=== PATIENT | male | born 1945 | race Asian ===

== ENCOUNTER 2023-03-12 16:29 | Inpatient (IN) | payer MEDICAID, OTHER ==
[~2023-03-12] VITALS: Ht 170.2 cm; Wt 53.5 kg
[2023-03-12] MEDS ORDERED: IV NS 0.9% 1,000 ML BAG IV ONE (17:00)
[2023-03-12] MEDS ORDERED: AZITHROMYCIN 500 MG in IV D5W 250 ML IV ONE (17:00)
[2023-03-12] MEDS ORDERED: PIPERACILLIN /TAZOBACTAM 3.375 G in IV D5W 50 ML IV ONE (17:00)
[2023-03-12] MEDS ORDERED: VANCOMYCIN 1 GM in IV D5W 250 ML IV ONE (17:00)
[2023-03-12 17:15] LABS: BASOPHILS % (AUTO) 0.2 % (0.0-2.0); EOSINOPHILS % (AUTO) 0.4 % (0.0-6.0); HEMATOCRIT 50 % (39-51); HEMOGLOBIN 15.9 g/dL (13.5-17.5); LYMPHOCYTES # (AUTO) 1.4 K/uL (0.8-4.8); LYMPHOCYTES % (AUTO) 11.2 % (20.0-44.0); MEAN CORPUSCULAR HGB CONC 32 g/dl (31.0-36.0); MEAN CORPUSCULAR VOLUME 79 fL (80-96); MONOCYTES # (AUTO) 0.8 K/uL (0.1-1.30); MONOCYTES % (AUTO) 6.4 % (2.0-12.0); NEUTROPHILS % (AUTO) 81.8 % (43.0-81.0); PLATELET COUNT (AUTO) 151 K/uL (150-450); RED BLOOD CELL COUNT(AUTO) 6.38 MIL/uL (4.5-6.0); WHITE BLOOD COUNT (AUTO) 12.3 K/uL (4.3-11.0)
[2023-03-12 17:17] LABS: ABG BASE EXCESS 4.7 mmol/L; ABG OXYGEN SATURATION 98.7 % (92.0-98.5); ABG PCO2 46.7 mmHg (35.0-45.0); ABG PH 7.425 (7.350-7.450); ABG PO2 139.7 mmHg (75.0-100.0); COHb 0.6 % (0.5-1.5); MetHb 0.4 % (0.0-1.5); O2Hb 97.7 % (94.0-97.0); SITE, ABG Left Radial; VENT MODE, BG 3 LPM NC
[2023-03-12 17:38] LABS: CALCIUM, SERUM 9.8 mg/dL (8.5-10.1); CARBON DIOXIDE 29 mmol/L (21-32); CHLORIDE 120 mmol/L (98-107); CREATININE 1.4 mg/dL (0.6-1.3); GLUCOSE 135 mg/dL (74-106); POTASSIUM 3.8 mmol/L (3.5-5.1); UREA NITROGEN, BLOOD 41 mg/dL (7-18)
[2023-03-12 17:53] LABS: ALANINE AMINOTRANSFERASE 44 U/L (12-78); ALBUMIN 3.6 g/dL (3.4-5.0); ALKALINE PHOSPHATASE 111 U/L (46-116); ASPARTATE AMINOTRANSFERASE 22 U/L (15-37); BILIRUBIN,DIRECT 0.1 mg/dL (0.0-0.2); BILIRUBIN,TOTAL 0.4 mg/dL (0.2-1.0); TOTAL PROTEIN, SERUM 9.5 g/dL (6.4-8.2)
[2023-03-12 17:55] LABS: SODIUM SERUM 166 mmol/L (136-145)
[2023-03-12] MEDS ORDERED: IV NS 0.9% 250 ML IV ONE (18:03)
[2023-03-12] MEDS ORDERED: CT SWABBABLE VALVE TRANS SET 1 EA INFUS.SET MC ONE (18:03)
[2023-03-12] MEDS ORDERED: IOHEXOL-350 100 ML VIAL IV ONE (18:03)
[2023-03-12 18:10] LABS: BILIRUBIN,URINE 1+ (NEGATIVE); COLOR,URINE YELLOW (YELLOW); LEUKOCYTE ESTERASE ,URINE NEGATIVE (NEGATIVE); NITRITE, URINE NEGATIVE (NEGATIVE); PROTEIN,URINE TRACE mg/dl (NEGATIVE); UGLUCOSE NEGATIVE (NEGATIVE); UROBILINOGEN,URINE 0.2 EU/dL (0.2)
[2023-03-12 18:28] LABS: BACTERIA,URINE Few /HPF (None Seen); MUCUS,URINE Few /LPF (None Seen); RBC,URINE 0-2 /HPF (0-2); SQUAMOUS EPITHELIAL CELL,UR None Seen /HPF (None Seen); WBC,URINE 0-2 /HPF (0-3)
[2023-03-12] MEDS ORDERED: CEFEPIME 1 GM in IV D5W 50 ML IV SCH (21:00)
[2023-03-12] MEDS ORDERED: Z GUARD REMEDY 4 OZ OINT TP PRN (21:00)
[2023-03-12] MEDS ORDERED: ONDANSETRON HCL/PF 4 MG/2 ML VIAL IVP PRN (21:00)
[2023-03-12] MEDS ORDERED: MAG HYDROX/AL HYDROX/SIMETH 30 ML UDC PO PRN (21:00)
[2023-03-12] MEDS ORDERED: ACETAMINOPHEN 650 MG/SUPP.RECT RC PRN (21:00)
[2023-03-12] MEDS ORDERED: MORPHINE SULFATE INJ 2 MG/ML DISP.SYRIN IV PRN (21:00)
[2023-03-12] MEDS ORDERED: ENOXAPARIN SODIUM 30 MG/0.3 ML DISP.SYRIN SQ SCH (21:30)
[2023-03-12] MEDS ORDERED: CEFEPIME 1 GM VIAL ONE (22:25)
[2023-03-12] MEDS: IV D5W 1,000 ML IV PRN (22:31)
[2023-03-13] VITALS: BP 159/89; TEMP 101.3; O2SAT 92
[2023-03-13 04:00] VITALS: BP 101/78; TEMP 97.7; O2SAT 91
[2023-03-13 06:38] LABS: BASOPHILS % (AUTO) 0.5 % (0.0-2.0); EOSINOPHILS % (AUTO) 0.7 % (0.0-6.0); HEMATOCRIT 40 % (39-51); HEMOGLOBIN 12.6 g/dL (13.5-17.5); LYMPHOCYTES # (AUTO) 1.2 K/uL (0.8-4.8); LYMPHOCYTES % (AUTO) 12.3 % (20.0-44.0); MEAN CORPUSCULAR HGB CONC 32 g/dl (31.0-36.0); MEAN CORPUSCULAR VOLUME 79 fL (80-96); MONOCYTES # (AUTO) 1.2 K/uL (0.1-1.30); NEUTROPHILS # (AUTO) 7.4 K/uL (1.8-8.9); NEUTROPHILS % (AUTO) 74.5 % (43.0-81.0); PLATELET COUNT (AUTO) 141 K/uL (150-450); WHITE BLOOD COUNT (AUTO) 9.9 K/uL (4.3-11.0)
[2023-03-13 07:20] LABS: THYROID STIMULATING HORMONE 1.326 uIU/mL (0.358-3.74)
[2023-03-13 07:23] LABS: CALCIUM, SERUM 9.1 mg/dL (8.5-10.1); CREATININE 1.2 mg/dL (0.6-1.3); MAGNESIUM 2.6 mg/dL (1.8-2.4); PHOSPHORUS 3.2 mg/dL (2.5-4.9); POTASSIUM 3.4 mmol/L (3.5-5.1)
[2023-03-13 08:30] VITALS: BP 104/74; TEMP 99.3; O2SAT 96
[2023-03-13] MEDS: VANCOMYCIN 500 MG in IV D5W 100ml IV SCH ×2 (08:46→20:13)
[2023-03-13] MEDS: PANTOPRAZOLE 40 MG VIAL IV SCH (08:46)
[2023-03-13] MEDS ORDERED: POTASSIUM CHLORIDE 10 MEQ/50 ML PREMIXED IVPB FOR PERIPHERAL LINE IV ONE (09:00)
[2023-03-13] MEDS: CEFEPIME 2 GM in IV D5W 100 ML IV SCH (09:51)
[2023-03-13 13:00] VITALS: BP 107/73; TEMP 99; O2SAT 96
[2023-03-13] MEDS ORDERED: ATOR40TA PO (13:53)
[2023-03-13] MEDS ORDERED: ACET325C7 PO (13:53)
[2023-03-13] MEDS ORDERED: CLON1TAB12 PO (13:53)
[2023-03-13] MEDS ORDERED: MELA3TAB41 PO (13:53)
[2023-03-13] MEDS ORDERED: SODI100037 PO (13:53)
[2023-03-13] MEDS ORDERED: PALI117D IM (13:53)
[2023-03-13] MEDS ORDERED: TRAZ-257 PO (13:53)
[2023-03-13] MEDS ORDERED: ASPI-1169 PO (13:53)
[2023-03-13] MEDS ORDERED: LORA-259 PO (13:53)
[2023-03-13] MEDS ORDERED: POLY17PO4 PO (13:53)
[2023-03-13] MEDS ORDERED: GABA300C PO (13:53)
[2023-03-13] MEDS ORDERED: QUET100T PO (13:53)
[2023-03-13] MEDS ORDERED: MAGN400T52 PO (13:53)
[2023-03-13] MEDS ORDERED: FERR325T23 PO (13:53)
[2023-03-13] MEDS ORDERED: DIVA-78 PO (13:53)
[2023-03-13] MEDS: LORAZEPAM INJ 2 MG/ML VIAL IV PRN (14:51)
[2023-03-13] MEDS: IV D5W 1,000 ML IV PRN (15:01)
[2023-03-13 16:00] VITALS: BP 122/72; TEMP 99.9; O2SAT 96
[2023-03-13] MEDS ORDERED: OLANZAPINE 10 MG VIAL IM ONE (18:00)
[2023-03-13 20:00] VITALS: BP 131/89; TEMP 98.4; O2SAT 96
[2023-03-13] MEDS: ENOXAPARIN SODIUM 40 MG/0.4 ML DISP.SYRIN SQ SCH (21:59)
[2023-03-14] VITALS: BP 145/82; TEMP 98.2; O2SAT 95
[2023-03-14] MEDS: CEFEPIME 2 GM in IV D5W 100 ML IV SCH ×3 (00:19→21:43)
[2023-03-14] MEDS: LORAZEPAM INJ 2 MG/ML VIAL IV PRN (01:34)
[2023-03-14 04:00] VITALS: BP 134/85; TEMP 97.9; O2SAT 96
[2023-03-14 06:50] LABS: BASOPHILS % (AUTO) 0.4 % (0.0-2.0); EOSINOPHILS % (AUTO) 1.4 % (0.0-6.0); HEMATOCRIT 38 % (39-51); HEMOGLOBIN 12.4 g/dL (13.5-17.5); LYMPHOCYTES # (AUTO) 1.8 K/uL (0.8-4.8); LYMPHOCYTES % (AUTO) 23.5 % (20.0-44.0); MEAN CORPUSCULAR HGB CONC 33 g/dl (31.0-36.0); MEAN CORPUSCULAR VOLUME 78 fL (80-96); MONOCYTES # (AUTO) 0.7 K/uL (0.1-1.30); MONOCYTES % (AUTO) 9.8 % (2.0-12.0); NEUTROPHILS # (AUTO) 4.9 K/uL (1.8-8.9); NEUTROPHILS % (AUTO) 64.9 % (43.0-81.0); PLATELET COUNT (AUTO) 132 K/uL (150-450); RED BLOOD CELL COUNT(AUTO) 4.86 MIL/uL (4.5-6.0); WHITE BLOOD COUNT (AUTO) 7.5 K/uL (4.3-11.0)
[2023-03-14 07:27] LABS: CALCIUM, SERUM 9.7 mg/dL (8.5-10.1); CREATININE 0.9 mg/dL (0.6-1.3); MAGNESIUM 2.6 mg/dL (1.8-2.4); PHOSPHORUS 2.2 mg/dL (2.5-4.9)
[2023-03-14 07:37] LABS: POTASSIUM 2.7 mmol/L (3.5-5.1)
[2023-03-14] MEDS: VANCOMYCIN 500 MG in IV D5W 100ml IV SCH (08:16)
[2023-03-14 08:51] VITALS: BP 140/85; TEMP 98.2; O2SAT 100
[2023-03-14] MEDS: PANTOPRAZOLE 40 MG VIAL IV SCH (09:02)
[2023-03-14] MEDS: POTASSIUM CL. PREMIX PERIPHER. 50 ML IV SCH ×4 (09:16→12:49)
[2023-03-14] MEDS: IV D5W 1,000 ML IV PRN (11:47)
[2023-03-14] MEDS ORDERED: LORAZEPAM 1 MG TABLET PO PRN (14:30)
[2023-03-14 16:08] VITALS: BP 140/91; TEMP 98.1; O2SAT 100
[2023-03-14] MEDS: QUETIAPINE FUMARATE 100 MG TABLET PO SCH (17:00)
[2023-03-14] MEDS ORDERED: Sodium Phosphate 15 MMOL in IV NS 0.9% 245 ML IV SCH (17:00)
[2023-03-14] MEDS: GABAPENTIN 300 MG CAPSULE PO SCH (17:00)
[2023-03-14] MEDS: DIVALPROEX SODIUM 500 MG TABLET.DR PO SCH (17:25)
[2023-03-14] MEDS: POTASSIUM PHOSPHATE MM 7.5 MMOL in IV NS 0.9% 100 ML IV SCH ×2 (18:14→21:34)
[2023-03-14 20:00] VITALS: BP 128/92; TEMP 97.7; O2SAT 96
[2023-03-14] MEDS: POTASSIUM CHLORIDE 20 MEQ TAB.PRT.SR PO SCH (20:00)
[2023-03-14] MEDS: VANCOMYCIN HCL 0.75 GM in IV D5W 250 ML IV SCH (20:15)
[2023-03-14] MEDS: clonazePAM 1 MG TABLET PO SCH (21:00)
[2023-03-14] MEDS: ENOXAPARIN SODIUM 40 MG/0.4 ML DISP.SYRIN SQ SCH (21:35)
[2023-03-14] MEDS: ATORVASTATIN 40 MG TABLET PO SCH (22:00)
[2023-03-15] MEDS: IV D5W 1,000 ML IV PRN (05:12)
[2023-03-15 06:35] LABS: BASOPHILS % (AUTO) 0.3 % (0.0-2.0); EOSINOPHILS % (AUTO) 2.9 % (0.0-6.0); HEMATOCRIT 36 % (39-51); HEMOGLOBIN 11.7 g/dL (13.5-17.5); LYMPHOCYTES # (AUTO) 1.9 K/uL (0.8-4.8); LYMPHOCYTES % (AUTO) 26.8 % (20.0-44.0); MEAN CORPUSCULAR HGB CONC 32 g/dl (31.0-36.0); MEAN CORPUSCULAR VOLUME 78 fL (80-96); MONOCYTES # (AUTO) 0.8 K/uL (0.1-1.30); MONOCYTES % (AUTO) 10.8 % (2.0-12.0); NEUTROPHILS # (AUTO) 4.3 K/uL (1.8-8.9); NEUTROPHILS % (AUTO) 59.2 % (43.0-81.0); PLATELET COUNT (AUTO) 142 K/uL (150-450); RED BLOOD CELL COUNT(AUTO) 4.68 MIL/uL (4.5-6.0); WHITE BLOOD COUNT (AUTO) 7.2 K/uL (4.3-11.0)
[2023-03-15 06:58] LABS: CALCIUM, SERUM 9.2 mg/dL (8.5-10.1); CREATININE 0.7 mg/dL (0.6-1.3); MAGNESIUM 1.9 mg/dL (1.8-2.4); PHOSPHORUS 3.8 mg/dL (2.5-4.9); POTASSIUM 3.2 mmol/L (3.5-5.1)
[2023-03-15 07:00] VITALS: BP 156/98; TEMP 98.2; O2SAT 97
[2023-03-15] MEDS: DIVALPROEX SODIUM 500 MG TABLET.DR PO SCH ×3 (08:00→17:02)
[2023-03-15] MEDS: QUETIAPINE FUMARATE 100 MG TABLET PO SCH ×2 (09:00→16:59)
[2023-03-15] MEDS: POTASSIUM CHLORIDE 20 MEQ TAB.PRT.SR PO SCH (09:00)
[2023-03-15] MEDS: ASPIRIN 81 MG TAB.CHEW PO SCH (09:00)
[2023-03-15] MEDS: POLYETHYLENE GLYCOL 3350 17 GM POWD.PACK PO SCH (09:00)
[2023-03-15] MEDS: clonazePAM 1 MG TABLET PO SCH ×3 (09:00→21:12)
[2023-03-15] MEDS: FERROUS SULFATE (325 MG) 325 MG/TAB TABLET PO SCH (09:00)
[2023-03-15] MEDS: GABAPENTIN 300 MG CAPSULE PO SCH ×3 (09:51→16:59)
[2023-03-15] MEDS: PANTOPRAZOLE 40 MG VIAL IV SCH (09:56)
[2023-03-15] MEDS: VANCOMYCIN HCL 0.75 GM in IV D5W 250 ML IV SCH ×2 (09:57→20:08)
[2023-03-15] MEDS: CEFEPIME 2 GM in IV D5W 100 ML IV SCH ×2 (11:04→21:12)
[2023-03-15 15:50] VITALS: BP 156/98; TEMP 98.2
[2023-03-15 16:00] VITALS: BP 141/89; TEMP 97.9; O2SAT 100
[2023-03-15 20:00] VITALS: BP 126/86; TEMP 97.5; O2SAT 100
[2023-03-15] MEDS: ATORVASTATIN 40 MG TABLET PO SCH ×2 (21:12→21:53)
[2023-03-15] MEDS: ENOXAPARIN SODIUM 40 MG/0.4 ML DISP.SYRIN SQ SCH (21:13)
[2023-03-16] MEDS: IV D5W 1,000 ML IV PRN (00:36)
[2023-03-16 07:24] LABS: BASOPHILS % (AUTO) 0.6 % (0.0-2.0); EOSINOPHILS % (AUTO) 3.1 % (0.0-6.0); HEMATOCRIT 37 % (39-51); HEMOGLOBIN 12.2 g/dL (13.5-17.5); LYMPHOCYTES # (AUTO) 2.2 K/uL (0.8-4.8); MEAN CORPUSCULAR HGB CONC 33 g/dl (31.0-36.0); MEAN CORPUSCULAR VOLUME 77 fL (80-96); MONOCYTES # (AUTO) 0.7 K/uL (0.1-1.30); MONOCYTES % (AUTO) 10.9 % (2.0-12.0); NEUTROPHILS # (AUTO) 3.3 K/uL (1.8-8.9); NEUTROPHILS % (AUTO) 51.4 % (43.0-81.0); PLATELET COUNT (AUTO) 160 K/uL (150-450); RED BLOOD CELL COUNT(AUTO) 4.86 MIL/uL (4.5-6.0); WHITE BLOOD COUNT (AUTO) 6.5 K/uL (4.3-11.0)
[2023-03-16] MEDS: VANCOMYCIN HCL 0.75 GM in IV D5W 250 ML IV SCH (07:27)
[2023-03-16 07:49] LABS: CALCIUM, SERUM 9.4 mg/dL (8.5-10.1); CREATININE 0.7 mg/dL (0.6-1.3); PHOSPHORUS 3.2 mg/dL (2.5-4.9); POTASSIUM 3.4 mmol/L (3.5-5.1)
[2023-03-16 08:00] VITALS: BP 146/94; TEMP 98.2; O2SAT 99
[2023-03-16] MEDS: POLYETHYLENE GLYCOL 3350 17 GM POWD.PACK PO SCH (08:32)
[2023-03-16] MEDS: clonazePAM 1 MG TABLET PO SCH (08:32)
[2023-03-16] MEDS: FERROUS SULFATE (325 MG) 325 MG/TAB TABLET PO SCH (08:32)
[2023-03-16] MEDS: ASPIRIN 81 MG TAB.CHEW PO SCH (08:32)
[2023-03-16] MEDS: DIVALPROEX SODIUM 500 MG TABLET.DR PO SCH ×2 (08:32→12:31)
[2023-03-16] MEDS: GABAPENTIN 300 MG CAPSULE PO SCH ×2 (08:32→12:31)
[2023-03-16] MEDS: QUETIAPINE FUMARATE 100 MG TABLET PO SCH (08:32)
[2023-03-16] MEDS: CEFEPIME 2 GM in IV D5W 100 ML IV SCH (08:47)
[2023-03-16] MEDS ORDERED: PANTOPRAZOLE 40 MG/PACK PACK PO SCH (09:00)
[2023-03-16] MEDS ORDERED: POTASSIUM CHLORIDE 20 MEQ POWDER PACKET NG SCH (10:00)
[2023-03-16 16:00] VITALS: BP 123/85; TEMP 97.6; O2SAT 97
[2023-03-16] MEDS ORDERED: VANCOMYCIN 1 GM in IV D5W 250 ML IV SCH (20:00)
[2023-04-13] MEDS ORDERED: PALIPERIDONE PALMITATE 117 MG/0.75 ML SYRINGE IM SCH (09:00)
== END 2023-03-16 16:26 | DRG 139 ==
LOC: ER 16:34 → TELE 20:21 → MED 03-14 12:53
PROVIDERS: ADMIT Nurse Practitioner Acute Care; ATTEND Nurse Practitioner Acute Care
PROC: 05HC33Z Insertion of Infusion Device into Left Basilic Vein, Percutaneous Approach (ICD-10-PCS; principal; 2023-03-14)
DX: J15.9 Unspecified bacterial pneumonia (principal); N17.0 Acute kidney failure with tubular necrosis; G93.41 Metabolic encephalopathy; E22.2 Syndrome of inappropriate secretion of antidiuretic hormone; E83.41 Hypermagnesemia; E87.0 Hyperosmolality and hypernatremia; D50.9 Iron deficiency anemia, unspecified; F10.11 Alcohol abuse, in remission; E87.20 Acidosis, unspecified; G30.9 Alzheimer's disease, unspecified; F02.80 Dementia in other diseases classified elsewhere, unspecified severity, without behavioral disturbance, psychotic disturbance, mood disturbance, and anxiety; Z87.891 Personal history of nicotine dependence; I77.810 Thoracic aortic ectasia; Z59.01 Sheltered homelessness; E87.6 Hypokalemia; G40.909 Epilepsy, unspecified, not intractable, without status epilepticus; D72.829 Elevated white blood cell count, unspecified; R09.02 Hypoxemia; Y95 Nosocomial condition
CPT/HCPCS: 36415; 36600; 71045-TC; 76770-TC; 80048-TC; 80061-TC; 80076-TC; 80202-TC; 81001; 82803-TC; 82962-TC; 83605-TC; 83735-TC; 83880; 84100-TC; 84443-TC; 84484-TC; 85025-TC; 85730-TC; 87040-TC; 87081-TC; 87086-TC; 92526; 92611-TC; 94799-TC; A4223; A6403; A9563; C9113; C9803; G0378; J0456; J0692; J1650; J2060; J2543; J3370; J3480; J3490; J7030; J7042; J7050; J7060; J7070; Q9967

== ENCOUNTER 2024-04-03 13:01 | Inpatient (IN) | payer MEDICAID ==
[~2024-04-03] VITALS: Ht 154.9 cm; Wt 59.0 kg
[~2024-04-03 13:01] MED LIST: ACET325C7 PO; ASPI-1169 PO; ATOR40TA PO; CLON1TAB12 PO; DIVA-78 PO; FERR325T23 PO; GABA300C PO; LORA-259 PO; MAGN400T52 PO; MELA3TAB41 PO; PALI117D IM; POLY17PO4 PO; QUET100T PO; SODI100037 PO; TRAZ-257 PO
[2024-04-03 13:43] LABS: BASOPHILS # (AUTO) 0.1 K/uL (0.0-0.2); EOSINOPHILS # (AUTO) 0.2 K/uL (0.0-0.7); EOSINOPHILS % (AUTO) 2.5 % (0.0-6.0); HEMATOCRIT 37 % (39-51); HEMOGLOBIN 12.5 g/dL (13.5-17.5); LYMPHOCYTES # (AUTO) 1.9 K/uL (0.8-4.8); MEAN CORPUSCULAR HEMOGLOBIN 30 PG (26.0-33.0); MEAN CORPUSCULAR HGB CONC 34 g/dl (31.0-36.0); MEAN CORPUSCULAR VOLUME 89 fL (80-96); MONOCYTES # (AUTO) 0.6 K/uL (0.1-1.30); MONOCYTES % (AUTO) 8.5 % (2.0-12.0); PLATELET COUNT (AUTO) 185 K/uL (150-450); RED BLOOD CELL COUNT(AUTO) 4.15 MIL/uL (4.5-6.0); RED CELL DISTRIBUTION WIDTH 13.8 % (11.5-15.0); WHITE BLOOD COUNT (AUTO) 6.7 K/uL (4.3-11.0)
[2024-04-03] MEDS ORDERED: VALP250C3 PO (13:55)
[2024-04-03] MEDS ORDERED: ATOR20TA PO (13:55)
[2024-04-03] MEDS ORDERED: LEVE100023 PO (13:55)
[2024-04-03 13:58] LABS: CALCIUM, SERUM 8.3 mg/dL (8.5-10.1); CARBON DIOXIDE 28 mmol/L (21-32); CHLORIDE 107 mmol/L (98-107); CREATININE 1.2 mg/dL (0.6-1.3); GLUCOSE 119 mg/dL (74-106); POTASSIUM 4.3 mmol/L (3.5-5.1); SODIUM SERUM 140 mmol/L (136-145); UREA NITROGEN, BLOOD 25 mg/dL (7-18)
[2024-04-03 13:59] LABS: INR 1.05 (0.91-1.10); PARTIAL THROMBOPLASTIN TIME 27.7 SEC (24.3-34.3); PROTHROMBIN TIME 11.1 SECS (9.2-11.1)
[2024-04-03 14:02] LABS: ACETAMINOPHEN <10 ug/ml (10-30); ALANINE AMINOTRANSFERASE 14 U/L (12-78); ALBUMIN 2.9 g/dL (3.4-5.0); ALCOHOL, BLOOD < 3 mg/dL (0-10); ALKALINE PHOSPHATASE 84 U/L (46-116); ASPARTATE AMINOTRANSFERASE 13 U/L (15-37); BILIRUBIN,DIRECT 0.1 mg/dL (0.0-0.2); BILIRUBIN,TOTAL 0.3 mg/dL (0.2-1.0); SALICYLATE 3.4 mg/dL (2.8-20.0); TOTAL PROTEIN, SERUM 5.7 g/dL (6.4-8.2)
[2024-04-03 14:05] LABS: LACTIC ACID 1.5 mmol/L (0.4-2.0)
[2024-04-03 14:06] LABS: SERUM AMMONIA 30 umol/L (11-32)
[2024-04-03] MEDS: IV NS 0.9% 1,000 ML BAG IV ONE (18:00)
[2024-04-03] MEDS ORDERED: IV 1/2NS 1000 ML 1,000 ML IV PRN (19:30)
[2024-04-03] MEDS ORDERED: ONDANSETRON HCL/PF 4 MG/2 ML VIAL IVP PRN (19:30)
[2024-04-03] MEDS ORDERED: ZOLPIDEM TARTRATE 5 MG TABLET PO PRN (19:30)
[2024-04-03] MEDS ORDERED: MAGNESIUM HYDROXIDE 30 ML UDC PO PRN (19:30)
[2024-04-03] MEDS ORDERED: Z GUARD REMEDY 4 OZ OINT TP PRN (19:30)
[2024-04-03] MEDS ORDERED: MAG HYDROX/AL HYDROX/SIMETH 30 ML UDC PO PRN (19:30)
[2024-04-03 22:02] LABS: APPEARANCE,URINE Clear (CLEAR); BILIRUBIN,URINE Negative (NEGATIVE); BLOOD, URINE Negative Ery/uL (NEGATIVE); COLOR,URINE YELLOW (YELLOW); KETONES,URINE Trace mg/dL (NEGATIVE); LEUKOCYTE ESTERASE ,URINE Negative (NEGATIVE); NITRITE, URINE Negative (NEGATIVE); PROTEIN,URINE Negative (NEGATIVE); UGLUCOSE Negative (NEGATIVE); UROBILINOGEN,URINE 0.2 EU/dL (0.2)
[2024-04-03 22:20] LABS: ADD URINE CULTURE NO; BACTERIA,URINE Few /HPF (None Seen); RBC,URINE 0-2 /HPF (0-2); SQUAMOUS EPITHELIAL CELL,UR Few /HPF (None Seen); WBC,URINE 0-2 /HPF (0-3)
[2024-04-03 22:40] LABS: AMPHETAMINE, URINE NEGATIVE (NEGATIVE); BARBITURATE, URINE NEGATIVE (NEGATIVE); BENZODIAZEPINE, URINE NEGATIVE (NEGATIVE); CANNABINOID, URINE NEGATIVE (NEGATIVE); OPIATE, URINE NEGATIVE (NEGATIVE); PHENCYCLIDINE SCREEN,URINE NEGATIVE (NEGATIVE)
[2024-04-03 22:50] LABS: COCCAINE, URINE NEGATIVE (NEGATIVE)
[2024-04-04] MEDS: ACETAMINOPHEN 325 MG TABLET PO PRN (05:25)
[2024-04-04 07:30] LABS: BASOPHILS % (AUTO) 0.6 % (0.0-2.0); EOSINOPHILS # (AUTO) 0.1 K/uL (0.0-0.7); EOSINOPHILS % (AUTO) 1.2 % (0.0-6.0); HEMATOCRIT 38 % (39-51); HEMOGLOBIN 12.6 g/dL (13.5-17.5); LYMPHOCYTES # (AUTO) 2.1 K/uL (0.8-4.8); LYMPHOCYTES % (AUTO) 35.4 % (20.0-44.0); MEAN CORPUSCULAR HEMOGLOBIN 28 PG (26.0-33.0); MEAN CORPUSCULAR HGB CONC 33 g/dl (31.0-36.0); MEAN CORPUSCULAR VOLUME 84 fL (80-96); MONOCYTES # (AUTO) 0.5 K/uL (0.1-1.30); NEUTROPHILS # (AUTO) 3.2 K/uL (1.8-8.9); NEUTROPHILS % (AUTO) 53.8 % (43.0-81.0); PLATELET COUNT (AUTO) 192 K/uL (150-450); RED BLOOD CELL COUNT(AUTO) 4.55 MIL/uL (4.5-6.0); RED CELL DISTRIBUTION WIDTH 16.2 % (11.5-15.0); WHITE BLOOD COUNT (AUTO) 5.9 K/uL (4.3-11.0)
[2024-04-04 08:07] LABS: CALCIUM, SERUM 9.3 mg/dL (8.5-10.1); CARBON DIOXIDE 21 mmol/L (21-32); CHLORIDE 98 mmol/L (98-107); CREATININE 0.6 mg/dL (0.6-1.3); GLUCOSE 66 mg/dL (74-106); PHOSPHORUS 3.4 mg/dL (2.5-4.9); POTASSIUM 3.5 mmol/L (3.5-5.1); SODIUM SERUM 131 mmol/L (136-145); UREA NITROGEN, BLOOD 12 mg/dL (7-18)
[2024-04-04] MEDS: ASPIRIN 81 MG TAB.CHEW PO SCH (08:09)
[2024-04-04] MEDS: LEVETIRACETAM (250 MG) 250 MG TABLET PO SCH (08:09)
[2024-04-04] MEDS: QUETIAPINE FUMARATE 100 MG TABLET PO SCH (08:09)
[2024-04-04 20:00] VITALS: BP 104/77; TEMP 98.6; O2SAT 99
[2024-04-04] MEDS: ATORVASTATIN 10 MG TABLET PO SCH (21:45)
[2024-04-05 08:13] LABS: CALCIUM, SERUM 8.7 mg/dL (8.5-10.1); CARBON DIOXIDE 22 mmol/L (21-32); CHLORIDE 103 mmol/L (98-107); CREATININE 0.7 mg/dL (0.6-1.3); GLUCOSE 98 mg/dL (74-106); MAGNESIUM 1.9 mg/dL (1.8-2.4); PHOSPHORUS 2.9 mg/dL (2.5-4.9); POTASSIUM 3.3 mmol/L (3.5-5.1); SODIUM SERUM 138 mmol/L (136-145); UREA NITROGEN, BLOOD 17 mg/dL (7-18)
[2024-04-05 08:20] LABS: BASOPHILS % (AUTO) 0.6 % (0.0-2.0); EOSINOPHILS # (AUTO) 0.1 K/uL (0.0-0.7); EOSINOPHILS % (AUTO) 1.1 % (0.0-6.0); HEMATOCRIT 34 % (39-51); HEMOGLOBIN 11.4 g/dL (13.5-17.5); LYMPHOCYTES # (AUTO) 2.2 K/uL (0.8-4.8); LYMPHOCYTES % (AUTO) 42.1 % (20.0-44.0); MEAN CORPUSCULAR HEMOGLOBIN 28 PG (26.0-33.0); MEAN CORPUSCULAR HGB CONC 33 g/dl (31.0-36.0); MEAN CORPUSCULAR VOLUME 84 fL (80-96); MONOCYTES # (AUTO) 0.7 K/uL (0.1-1.30); MONOCYTES % (AUTO) 12.8 % (2.0-12.0); NEUTROPHILS # (AUTO) 2.2 K/uL (1.8-8.9); NEUTROPHILS % (AUTO) 43.4 % (43.0-81.0); PLATELET COUNT (AUTO) 170 K/uL (150-450); RED BLOOD CELL COUNT(AUTO) 4.11 MIL/uL (4.5-6.0); RED CELL DISTRIBUTION WIDTH 16.3 % (11.5-15.0); WHITE BLOOD COUNT (AUTO) 5.1 K/uL (4.3-11.0)
[2024-04-05] MEDS: NICOTINE PATCH (14MG) 14 MG PATCH.TD24 TD SCH (08:26)
[2024-04-05 08:28] VITALS: BP 99/68; TEMP 97.7; O2SAT 96
[2024-04-05] MEDS: POTASSIUM CHLORIDE 20 MEQ TAB.PRT.SR PO SCH (10:50)
[2024-04-05 16:08] VITALS: BP 90/64; TEMP 98; O2SAT 100
[2024-04-05 20:00] VITALS: BP 80/97; TEMP 97.5; O2SAT 100
[2024-04-06 06:47] LABS: BASOPHILS # (AUTO) 0.1 K/uL (0.0-0.2); BASOPHILS % (AUTO) 1.3 % (0.0-2.0); EOSINOPHILS # (AUTO) 0.1 K/uL (0.0-0.7); EOSINOPHILS % (AUTO) 1.1 % (0.0-6.0); HEMATOCRIT 37 % (39-51); HEMOGLOBIN 12.2 g/dL (13.5-17.5); LYMPHOCYTES # (AUTO) 2.3 K/uL (0.8-4.8); LYMPHOCYTES % (AUTO) 40.9 % (20.0-44.0); MEAN CORPUSCULAR HEMOGLOBIN 28 PG (26.0-33.0); MEAN CORPUSCULAR HGB CONC 33 g/dl (31.0-36.0); MEAN CORPUSCULAR VOLUME 85 fL (80-96); MONOCYTES # (AUTO) 0.6 K/uL (0.1-1.30); MONOCYTES % (AUTO) 11.5 % (2.0-12.0); NEUTROPHILS # (AUTO) 2.5 K/uL (1.8-8.9); NEUTROPHILS % (AUTO) 45.2 % (43.0-81.0); PLATELET COUNT (AUTO) 185 K/uL (150-450); RED BLOOD CELL COUNT(AUTO) 4.36 MIL/uL (4.5-6.0); RED CELL DISTRIBUTION WIDTH 16.5 % (11.5-15.0); WHITE BLOOD COUNT (AUTO) 5.5 K/uL (4.3-11.0)
[2024-04-06 06:59] LABS: CALCIUM, SERUM 8.9 mg/dL (8.5-10.1); CARBON DIOXIDE 27 mmol/L (21-32); CHLORIDE 103 mmol/L (98-107); CREATININE 0.7 mg/dL (0.6-1.3); GLUCOSE 81 mg/dL (74-106); MAGNESIUM 1.9 mg/dL (1.8-2.4); PHOSPHORUS 2.7 mg/dL (2.5-4.9); POTASSIUM 3.9 mmol/L (3.5-5.1); SODIUM SERUM 136 mmol/L (136-145); UREA NITROGEN, BLOOD 12 mg/dL (7-18)
[2024-04-06 08:28] VITALS: BP 98/72; TEMP 98.2; O2SAT 99
[2024-04-06] MEDS: NEOMY SULF/BACITRAC ZN/POLY 15 GM TUBE TP SCH (11:00)
[2024-04-06 16:04] VITALS: BP 94/67; TEMP 97.9; O2SAT 98
[2024-04-06] MEDS: VALPROIC ACID 250 MG/5 ML UDC PO SCH (17:02)
[2024-04-06 20:00] VITALS: BP 97/62; TEMP 97.8; O2SAT 100
[2024-04-07 06:54] LABS: BASOPHILS % (AUTO) 0.9 % (0.0-2.0); EOSINOPHILS # (AUTO) 0.1 K/uL (0.0-0.7); EOSINOPHILS % (AUTO) 1.1 % (0.0-6.0); HEMATOCRIT 32 % (39-51); HEMOGLOBIN 10.5 g/dL (13.5-17.5); LYMPHOCYTES # (AUTO) 2.3 K/uL (0.8-4.8); LYMPHOCYTES % (AUTO) 48.2 % (20.0-44.0); MEAN CORPUSCULAR HEMOGLOBIN 28 PG (26.0-33.0); MEAN CORPUSCULAR HGB CONC 33 g/dl (31.0-36.0); MEAN CORPUSCULAR VOLUME 84 fL (80-96); MONOCYTES # (AUTO) 0.7 K/uL (0.1-1.30); MONOCYTES % (AUTO) 13.9 % (2.0-12.0); NEUTROPHILS # (AUTO) 1.7 K/uL (1.8-8.9); NEUTROPHILS % (AUTO) 35.9 % (43.0-81.0); PLATELET COUNT (AUTO) 154 K/uL (150-450); RED BLOOD CELL COUNT(AUTO) 3.75 MIL/uL (4.5-6.0); RED CELL DISTRIBUTION WIDTH 16.5 % (11.5-15.0); WHITE BLOOD COUNT (AUTO) 4.8 K/uL (4.3-11.0)
[2024-04-07 07:13] LABS: CARBON DIOXIDE 23 mmol/L (21-32); CHLORIDE 105 mmol/L (98-107); CREATININE 0.7 mg/dL (0.6-1.3); GLUCOSE 96 mg/dL (74-106); POTASSIUM 3.5 mmol/L (3.5-5.1); SODIUM SERUM 139 mmol/L (136-145); UREA NITROGEN, BLOOD 15 mg/dL (7-18)
[2024-04-07 08:00] VITALS: BP 96/64; TEMP 98.1; O2SAT 100
[2024-04-07 16:00] VITALS: BP 101/63; TEMP 99; O2SAT 98
[2024-04-07 20:15] VITALS: BP 104/65; TEMP 98.4; O2SAT 99
== END 2024-04-07 20:15 | DRG 422 ==
LOC: ER 13:04 → MED 04-04 01:04
PROVIDERS: ADMIT Student in an Organized Health Care Education/Training Program; ATTEND Nurse Practitioner Acute Care
DX: E86.0 Dehydration (principal); E86.1 Hypovolemia; G93.41 Metabolic encephalopathy; E44.0 Moderate protein-calorie malnutrition; G30.9 Alzheimer's disease, unspecified; F02.82 Dementia in other diseases classified elsewhere, unspecified severity, with psychotic disturbance; G93.89 Other specified disorders of brain; E87.1 Hypo-osmolality and hyponatremia; E87.6 Hypokalemia; G40.909 Epilepsy, unspecified, not intractable, without status epilepticus; Z20.822 Contact with and (suspected) exposure to COVID-19; E78.5 Hyperlipidemia, unspecified; R26.9 Unspecified abnormalities of gait and mobility; R53.1 Weakness; Z79.82 Long term (current) use of aspirin; F29 Unspecified psychosis not due to a substance or known physiological condition; Z79.899 Other long term (current) drug therapy; R79.89 Other specified abnormal findings of blood chemistry; F10.90 Alcohol use, unspecified, uncomplicated; Y90.9 Presence of alcohol in blood, level not specified; I77.810 Thoracic aortic ectasia; D64.9 Anemia, unspecified; Z72.0 Tobacco use
CPT/HCPCS: 36415; 70450-TC; 71045-TC; 80048-TC; 80076-TC; 81001; 82140-TC; 82962-TC; 83605-TC; 83735-TC; 84100-TC; 84443-TC; 84484-TC; 85025-TC; 85730-TC; 87040-TC; 87081-TC; 87086-TC; G0378; G0480